=== PATIENT | female | born 1950 | race Two or more races ===

== ENCOUNTER → 2021-02-16 10:35 | Outpatient (CLI) | payer MEDICARE | END | disposition home or self-care (01) | LOC: D.RAD 10:35 | PROVIDERS: ATTEND Nurse Practitioner | DX: R07.81 Pleurodynia (principal) ==

== ENCOUNTER → 2021-02-17 09:58 | Outpatient (CLI) | payer MEDICARE | END | disposition home or self-care (01) | LOC: D.MRI 09:58 | PROVIDERS: ATTEND Nurse Practitioner | DX: M25.511 Pain in right shoulder (principal) ==